=== PATIENT | female | born 2000 | race Native Hawaiian/Other Pacific Islander ===

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

== ENCOUNTER 2020-07-02 16:22 | Emergency (ER) | payer OTHER ==
[~2020-07-02] VITALS: Ht 175.3 cm; Wt 93.9 kg
[2020-07-02 16:26] VITALS: BP 132/90; TEMP 98.1
== END 2020-07-02 16:55 | disposition home or self-care (01) ==
LOC: ED 16:22
DX: N94.3 Premenstrual tension syndrome (principal)
CPT/HCPCS: 81000; 81025; 99283

== ENCOUNTER 2020-10-14 17:01 | Emergency (ER) | payer OTHER ==
[~2020-10-14] VITALS: Ht 175.3 cm; Wt 93.9 kg
[2020-10-14 17:27] VITALS: BP 145/91; TEMP 97.3
== END 2020-10-14 18:07 | disposition home or self-care (01) ==
LOC: ED 17:01
DX: Z53.21 Procedure and treatment not carried out due to patient leaving prior to being seen by health care provider (principal); J02.9 Acute pharyngitis, unspecified; R05 Cough
CPT/HCPCS: 99281

== ENCOUNTER 2021-02-12 22:53 | Emergency (ER) | payer OTHER ==
[~2021-02-12] VITALS: Ht 172.7 cm; Wt 91.6 kg
[2021-02-12 22:57] VITALS: BP 143/75; TEMP 98
== END 2021-02-12 23:16 | disposition home or self-care (01) ==
LOC: ED 22:53
DX: S09.8XXA Other specified injuries of head, initial encounter (principal); S19.89XA Other specified injuries of other specified part of neck, initial encounter; W10.8XXA Fall (on) (from) other stairs and steps, initial encounter; Y92.89 Other specified places as the place of occurrence of the external cause
CPT/HCPCS: 99282; 99283